=== PATIENT | female | born 1990 | race Caucasian/White ===

== ENCOUNTER 2017-10-14 22:19 | Inpatient (IN) | payer OTHER ==
[~2017-10-14] VITALS: Ht 160 cm; Wt 73.0 kg
[2017-10-15] MEDS ORDERED: PRENATAL TABLE1 EAC1 PO (07:13)
[2017-10-15] MEDS ORDERED: SYNTHROID50 MCG PO (18:54)
== END 2017-10-16 16:35 | disposition home or self-care (01) | DRG 781 ==
LOC: LDR 22:19
PROC: BY4FZZZ Ultrasonography of Third Trimester, Single Fetus (ICD-10-PCS; principal; 2017-10-14)
PROC: 4A1HXCZ Monitoring of Products of Conception, Cardiac Rate, External Approach (ICD-10-PCS; 2017-10-14)
DX: O41.03X0 Oligohydramnios, third trimester, not applicable or unspecified (principal); O23.33 Infections of other parts of urinary tract in pregnancy, third trimester; Z34.83 Encounter for supervision of other normal pregnancy, third trimester

== ENCOUNTER 2017-10-19 16:34 | Inpatient (IN) | payer OTHER ==
[~2017-10-19] VITALS: Ht 160 cm; Wt 1.4 kg
[~2017-10-19 16:34] MED LIST: PRENATAL TABLE1 EAC1 PO; SYNTHROID50 MCG PO
== END 2017-10-23 18:02 | disposition home or self-care (01) | DRG 766 ==
LOC: OB/GYN 16:34 → LDR 16:34 → OB/GYN 10-20 00:32
PROVIDERS: Obstetrics & Gynecology
PROC: 0UL70ZZ Occlusion of Bilateral Fallopian Tubes, Open Approach (ICD-10-PCS; 2017-10-19)
PROC: 4A033R1 Measurement of Arterial Saturation, Peripheral, Percutaneous Approach (ICD-10-PCS; 2017-10-19)
PROC: 4A1HXCZ Monitoring of Products of Conception, Cardiac Rate, External Approach (ICD-10-PCS; 2017-10-19)
PROC: 10D00Z1 Extraction of Products of Conception, Low, Open Approach (ICD-10-PCS; principal; 2017-10-19 21:00)
DX: O41.03X0 Oligohydramnios, third trimester, not applicable or unspecified (principal); Z3A.37 37 weeks gestation of pregnancy; Z37.0 Single live birth; Z30.2 Encounter for sterilization